=== PATIENT | female | born 1975 | race Caucasian/White ===

== ENCOUNTER 2016-12-31 13:05 | Inpatient (IN) | payer OTHER ==
[~2016-12-31] VITALS: Ht 171.4 cm; Wt 78.6 kg
[2016-12-31 14:11] VITALS: BP 126/77; PULSE 96; RESP 18
--- NOTE | 2016-12-31 16:11 | RADRPT ---
PROCEDURE: US OB biophysical profile. CLINICAL INDICATION: decreased movements, contractions TECHNIQUE: Multiple sonographic images of the pelvis were obtained. The images were reviewed on a PACS workstation. COMPARISON: No prior studies are available for comparison. FINDINGS: There is a single viable intrauterine gestation. Cardiac activity is present with 116 beats per min [place]. There is a vertex presentation. The placenta is posterior. There is no evidence of placental abruption. There is a normal amount of amniotic fluid with an JOSE CARLOS = 10.4 cm. Biophysical profile: movement 2/2 tone 2/2. breathing 2/2 JOSE CARLOS 2/2 Total 12/08 RPTAT: AA . IMPRESSION: Normal biophysical profile. . .Shelton Norton MD, MD Date Time Electronically viewed and signed by .Shelton Norton MD, MD on 12/31/2016 16:11 .S/
[2016-12-31] MEDS ORDERED: LACTATED RINGER'S 1,000 ML IV PRN (18:43)
[2016-12-31] MEDS: LACTATED RINGER'S 1,000 ML IV SCH (18:55)
[2016-12-31 18:56] VITALS: Ht 171.4 cm; Wt 78.6 kg
[2016-12-31] MEDS ORDERED: METHYLERGONOVINE 0.2 MG INJ IM PRN (19:00)
[2016-12-31] MEDS ORDERED: BUTORPHANOL 2 MG INJ IV PRN (19:00)
[2016-12-31] MEDS ORDERED: OXYTOCIN 30 UNITS/LR 500 ML IV PRN (19:00)
[2016-12-31] MEDS ORDERED: CARBOPROST 250 MCG INJ IM PRN (19:00)
[2016-12-31] MEDS ORDERED: MISOPROSTOL 200 MCG TAB PR PRN (19:00)
[2016-12-31] MEDS ORDERED: OXYTOCIN 30 UNITS/LR 500 ML IV SCH ×3 (19:00→22:00)
[2016-12-31] MEDS ORDERED: IBUPROFEN 600 MG TAB PO PRN (19:00)
[2016-12-31] MEDS ORDERED: LIDOCAINE 1% (MPF) 30 ML INJ INJ PRN (19:00)
--- NOTE | 2016-12-31 19:27 | RADRPT ---
PROCEDURE: US OB. CLINICAL INDICATION: Ruptured membranes. TECHNIQUE: Multiple sonographic images of the uterus were obtained. The images were revi ewed on a PACS workstation. COMPARISON: No prior studies are available for comparison. FINDINGS: There is a single live intrauterine gestation. heart rate is 115 beats per minute. Measurements were made in order to determine age. The results are as follows: BPD = not seen due to low position cm. HC = not seen due to low position cm. AC = 33.31 cm. FL = 6.25 cm. Estimated weight is 2758 +/- 441 grams. LMP growth percentile is 20 %. Menstrual age by ultrasound dates is 34 weeks 6 days. The estimated date of delivery is 02/05/2017. Amniotic fluid index is 4.8 cm. Position is cephalic and placenta is posterior fundal grade III. There is no evidence for an abrupti on or placenta previa. IMPRESSION: 1. Single live intrauterine gestation of 34 weeks 6 days menstrual age by ultrasound dates. 2. The estimated date of delivery is 02/05/2017. 3. Oligohydramnios. RPTAT: QQ .Seth Sarah MD, Date Time Electronically viewed and signed by .Seth Sarah MD, on 12/31/2016 19:27 .R/
--- NOTE | 2016-12-31 19:52 | TRIAGE ---
OB Triage Datetime Report Generated by CPN: 12/31/2016 19:52 Datetime: 12/31/2016 19:49 Assessment Type: Admission Assessment Vaginal Bleeding: None Maternal Assessment Level of Consciousness: Fully Conscious DTR's/Clonus: DTRs 2+; No Clonus Headache: Denies Blurred Vision: No Respiratory Effort: Unlabored; Regular Rhythm; Equal Expansion Breath Sounds, Left: Clear and Equal Breath Sounds, Right: Clear and Equal Nausea/Vomiting: Denies RUQ Epigastric Pain: Denies Lower Extremities Edema: None Degree: None Upper Extremities Edema: None Degree: None Facial Edema: None Fall Risk Assessment History of Falling: (0) No Secondary Diagnosis: (0) No Ambulatory Aid: (0) Bedrest/Nurse Assist IV Therapy: (20) Yes Gait: (0) Normal/Bedrest/Immobile Mental Status: (0) Oriented to Own Ability Labor Evaluation Frequency: 2-3 Duration (sec)2399: 50-100 Quality: Moderate Pattern: Normal: <= 5 Contractions in 10 Minutes Resting Tone Bowman: Relaxed Pain Assessment Pain Scale: 8 Pain Presence: Intermittent Pain Type: Contraction Pain Location: Abdomen Pain Goal: 4 Membrane Status: Ruptured Membranes Ruptured Date/Time: 12/31/2016 02:00 Membranes Rupture Method: Spontaneous Amniotic Fluid Color: Clear Amniotic Fluid Amount: Moderate Amniotic Fluid Odor: None Datetime: 12/31/2016 19:23 Vaginal Exam Dilatation (cms): 5.5 Effacement (%): 80 Station: -2 Exam By: PHOEBE RN Datetime: 12/31/2016 19:10 Membrane Status: Ruptured Datetime: 12/31/2016 19:03 Membrane Status: Intact Datetime: 12/31/2016 18:59 Labor Evaluation Frequency: 2-3 Monitor Mode: Palpation Duration (sec)2399: 50-60 Quality: Mild Pattern: Normal: <= 5 Contractions in 10 Minutes Resting Tone Bowman: Relaxed Heart Rate FHR Baseline Rate: 125 Monitor Mode: External US FHR Baseline Changes: No Baseline Change Variability: Moderate 6-25 bpm Accelerations: 15X15 Decelerations: Variable Category: Category II Datetime: 12/31/2016 18:33 Assessment Type: Admission Assessment Time of Arrival: 12/31/2016 18:33 EGA: 37.2 Arrived From: TRIAGE Maternal Assessment Level of Consciousness: Fully Conscious Maternal Assessment Level of Consciousness: Fully Conscious DTR's/Clonus: DTRs 2+; No Clonus DTR's/Clonus: DTRs 2+; No Clonus Headache: Denies Headache: Denies Blurred Vision: No Respiratory Effort: Unlabored; Regular Rhythm; Equal Expansion Breath Sounds, Left: Clear and Equal Breath Sounds, Left: Clear and Equal Breath Sounds, Right: Clear and Equal Breath Sounds, Right: Clear and Equal Nausea/Vomiting: Denies RUQ Epigastric Pain: Denies RUQ Epigastric Pain: Denies Lower Extremities Edema: None Degree: None Upper Extremities Edema: None Facial Edema: None Facial Edema: None Fall Risk Assessment History of Falling: (0) No Secondary Diagnosis: (0) No Ambulatory Aid: (0) Bedrest/Nurse Assist IV Therapy: (0) No Gait: (0) Normal/Bedrest/Immobile Mental Status: (0) Oriented to Own Ability Fall Score: 0 Fall Risk Score Definition: No Risk: No action required Datetime: 12/31/2016 17:08 Vaginal Exam Dilatation (cms): 4.0 Effacement (%): 60 Station: -2 Exam By: LAKESHIA WATERMAN Vaginal Bleeding: None Cervix, Consistency: Soft Cervix, Position: Posterior Datetime: 12/31/2016 14:44 Vaginal Exam Dilatation (cms): 2.5 Effacement (%): 60 Station: -2 Exam By: LAKESHIA WATERMAN Vaginal Bleeding: None Cervix, Consistency: Soft Cervix, Position: Posterior Presentation 'A': Cephalic Datetime: 12/31/2016 13:36 Stage of : OB Triage Maternal Assessment Level of Consciousness: Fully Conscious DTR's/Clonus: DTRs 2+; No Clonus Headache: Denies Breath Sounds, Left: Clear and Equal Breath Sounds, Right: Clear and Equal Nausea/Vomiting: Denies RUQ Epigastric Pain: Denies Facial Edema: None Labor Evaluation Frequency: X1 Monitor Mode: External Duration (sec)2399: 80 Pattern: Normal: <= 5 Contractions in 10 Minutes Resting Tone Bowman: Relaxed Heart Rate FHR Baseline Rate: 120 Monitor Mode: External US FHR Baseline Changes: No Baseline Change Variability: Moderate 6-25 bpm Accelerations: 15X15 Decelerations: None Category: Category I Pain Assessment Pain Scale: 4 Pain Presence: Intermittent Pain Type: Cramping Pain Location: Abdomen Pain Goal: 0 Pain Relief Measures: Comfort Measures Datetime: 12/31/2016 13:09 EGA: 37.1 Datetime: 12/31/2016 13:04 Time of Arrival: 12/30/2016 12:49 Arrived By: Ambulatory Arrived From: Home Movement: Present Contractions: Irregular Rupture of Membranes: Unsure Vaginal Bleeding: None Vaginal Discharge: Denies Recent Sexual Intercouse: Denies Abdominal Trauma: Not Applicable Patient Complaints: None Time Provider Notified: 12/31/2016 13:35
[2016-12-31 19:56] LABS: BASOPHILS % 0.2 % (0.0-2.0); EOSINOPHILS % 0.4 % (0.0-7.0); HEMATOCRIT 35.4 % (37.0-47.0); HEMOGLOBIN 11.9 g/dl (12.0-16.0); LYMPHOCYTES % 19.1 % (15.0-51.0); MEAN CORPUSCULAR HEMOGLOBIN 30.9 pg (29.0-33.0); MEAN CORPUSCULAR HGB CONC 33.6 g/dl (32.0-37.0); MEAN CORPUSCULAR VOLUME 91.9 fl (82.0-101.0); MEAN PLATELET VOLUME 10.9 fl (7.4-10.4); MONOCYTE # 0.8 10^3/ul (0.3-0.9); MONOCYTES % 7.6 % (0.0-11.0); NEUTROPHILS % 72.1 % (39.0-77.0); PLATELET COUNT 203 10^3/UL (140-415); RED BLOOD COUNT 3.85 10^6/ul (4.20-5.40); RED CELL DISTRIBUTION WIDTH 14.4 % (11.5-14.5); WHITE BLOOD COUNT 10.3 10^3/ul (4.8-10.8)
[2016-12-31 20:23] LABS: INR 0.87; PROTIME 11.8 Sec (12.2-14.2); PT RATIO 0.9
[2016-12-31 20:42] LABS: PARTIAL THROMBOPLASTIN TIME 26.5 Sec (25.0-35.0)
[2016-12-31] MEDS ORDERED: FENTAnyl 2MCG/ML-ROPIV 0.2% 100 ML ONE (20:54)
[2016-12-31] MEDS ORDERED: AMPICILLIN 2 GM/NS (PMX) 100 ML IV ONE (22:00)
[2016-12-31] MEDS ORDERED: AMPICILLIN 2 GM/NS (PMX) 100 ML ONE (22:08)
--- NOTE | 2016-12-31 23:12 | PREOPHP ---
DATE OF ADMISSION: 12/31/2016 HISTORY OF PRESENT ILLNESS: Ms. Christie Li is a 41-year- old, 2, para 1, EDC 01/19/2017, intra at 37 weeks and 2 days, presented to triage complaining of leaking fluid since 2:00 this morning, with positive contractions. She is currently 5 cm dilated, 80 percent effaced, -2 station. She reports positive movement and currently has an epidural for anesthesia. [facility] care took place [facility]. She had a big gap between her care between 27 weeks and 35 weeks gestational age. She had a positive T21 on her maternal serum alpha-fetoprotein; however her NIPT test was normal. PAST MEDICAL HISTORY: None. MEDICATIONS: vitamins. PAST SURGICAL HISTORY: None. OBSTETRICAL HISTORY: X1 vaginal delivery. GYNECOLOGIC HISTORY: Twelve, regular, 34 days. Denies any sexually transmitted disease. Sexually active with 1 partner. SOCIAL HISTORY: Denies any smoking, drugs, or alcohol. FAMILY HISTORY: None. REVIEW OF SYSTEMS: All within normal, except History of Present Illness. PHYSICAL EXAMINATION: HEENT: Within normal limits. CARDIAC: S1, S2. Regular rhythm. ABDOMEN: Gravid, nontender. Negative CVA bilaterally. EXTREMITIES: No leg edema or calf tenderness. VAGINAL EXAMINATION: About 5 cm dilated, 80 percent effaced, -2 station, with spontaneous rupture of membranes. ASSESSMENT: A 41-year-old, 2, para 1, intra at 37 weeks and 2 days gestational age, advanced maternal age, in labor/prolonged rupture of membranes. PLAN: Expected vaginal delivery. Pitocin as needed. IV antibiotics for a prolonged rupture of membranes. Dictated By: Shashi Lo MD /[email or web address]/jorge /Document#: [id number]
[2016-12-31 23:53] LABS: BARBITURATES Negative (NEGATIVE); BENZODIAZEPINES Negative (NEGATIVE); CANNABINOIDS Negative (NEGATIVE); COCAINE Negative (NEGATIVE); OPIATES Negative (NEGATIVE)
[2017-01-01] MEDS ORDERED: FENTAnyl 2MCG/ML-ROPIV 0.2% 100 ML BAG EPI SCH (00:30)
[2017-01-01] MEDS ORDERED: ONDANSETRON 4 MG INJ IV PRN ×2 (00:30→03:00)
[2017-01-01] MEDS ORDERED: NALBUPHINE HCL (10 MG/1 ML) INJ IV PRN (00:30)
[2017-01-01] MEDS ORDERED: TRIMETHOBENZAMIDE 100 MG/ML VIAL IM PRN (00:30)
[2017-01-01] MEDS ORDERED: NALOXONE (0.4 MG/ML) INJ IV PRN (00:30)
[2017-01-01] MEDS ORDERED: DIPHENHYDRAMINE 50 MG INJ IV PRN (00:30)
[2017-01-01] MEDS: LACTATED RINGER'S 1,000 ML IV SCH (01:55)
[2017-01-01] MEDS ORDERED: AMPICILLIN 1 GM/NS (PMX) 50 ML IV SCH (02:00)
[2017-01-01] MEDS: LACTATED RINGER'S 1,000 ML IV* SCH ×3 (02:53→18:53)
--- NOTE | 2017-01-01 02:53 | LDN ---
Date/Time of Note Date/Time of Note DATE: 01/01/17 TIME: 02:51 Delivery Summary Normal spontaneous vaginal delivery a viable female 8/ 9 respectively at 1 and 5 minutes Weeks of Gestation 37 Placenta Delivered: Spontaneously Meconium: none Episiotomy: Yes Laceration repair: Right medial lateral episiotomy repaired with 2-0 and 3-0 chromic Anesthesia type: Epidural Sponge & Needle done & correct: Yes All needle counts correct: Yes Problems: Infant Delivery Information Sex Sex: female Apgars 1 Minute: 8 5 Minute: 9 Suctioning Nose & mouth suctioned at angela: No Delee suction performed: No Umbilical Cord Umbilical cord with: 3 Vessels Cord presentations: no nuchal cord Cord Blood was obtained: Yes CARMENCITA PELAYO MD Jan 01, 2017 02:53
[2017-01-01] MEDS ORDERED: SENNA/DOCUSATE NA (8.6MG/50MG) TAB PO PRN (03:00)
[2017-01-01] MEDS ORDERED: MISOPROSTOL 200 MCG TAB PR PRN (03:00)
[2017-01-01] MEDS ORDERED: METHYLERGONOVINE 0.2 MG INJ IM PRN (03:00)
[2017-01-01] MEDS ORDERED: OXYTOCIN 30 UNITS/LR 500 ML IV PRN (03:00)
[2017-01-01] MEDS ORDERED: HYDROCODONE/APAP (5/325) TAB PO PRN (03:00)
[2017-01-01] MEDS ORDERED: ONDANSETRON 4 MG TAB PO PRN (03:00)
[2017-01-01] MEDS ORDERED: CARBOPROST 250 MCG INJ IM PRN (03:00)
[2017-01-01] MEDS ORDERED: DIBUCAINE 1% 30 GM OINT PR PRN (03:00)
[2017-01-01 04:45] VITALS: BP 112/68; PULSE 59; RESP 18
[2017-01-01 05:15] VITALS: BP 105/69; PULSE 60; RESP 18
[2017-01-01] MEDS: IBUPROFEN 600 MG TAB PO SCH ×4 (05:52→23:42)
[2017-01-01] MEDS: CEFAZOLIN 2 GM/50 ML (PMX) 50 ML IV SCH ×3 (05:52→21:33)
[2017-01-01] MEDS: BENZOCAINE 20% 56 ML SPRAY TOP PRN (05:53)
[2017-01-01] MEDS: WITCH HAZEL/GLYCERIN PAD PR PRN (05:53)
[2017-01-01] MEDS: LANOLIN 7 GM TUBE TOP PRN (05:54)
[2017-01-01 08:00] VITALS: BP 114/57; PULSE 77; RESP 20
[2017-01-01] MEDS: SENNA/DOCUSATE NA (8.6MG/50MG) TAB PO SCH ×2 (08:32→21:33)
[2017-01-01] MEDS: MAGNESIUM HYDROXIDE 30ML CUP PO SCH ×2 (08:32→21:33)
[2017-01-01] MEDS: HYDROCODONE/APAP (5/325) TAB PO PRN ×2 (08:33→13:17)
[2017-01-01 16:00] VITALS: BP 120/82; RESP 18
[2017-01-01 20:40] VITALS: BP 106/58; PULSE 68; RESP 18
[2017-01-02] MEDS: LACTATED RINGER'S 1,000 ML IV* SCH ×3 (00:49→18:53)
[2017-01-02 04:00] VITALS: BP 107/70; PULSE 59; RESP 19
[2017-01-02] MEDS: IBUPROFEN 600 MG TAB PO SCH ×3 (05:36→17:58)
[2017-01-02 08:00] VITALS: BP 128/71; PULSE 58; RESP 20
[2017-01-02 08:44] LABS: BASOPHILS % 0.3 % (0.0-2.0); EOSINOPHILS # 0.1 10^3/ul (0.0-0.5); EOSINOPHILS % 0.8 % (0.0-7.0); HEMATOCRIT 31.9 % (37.0-47.0); HEMOGLOBIN 10.8 g/dl (12.0-16.0); LYMPHOCYTES # 1.7 10^3/ul (0.8-2.9); LYMPHOCYTES % 16.6 % (15.0-51.0); MEAN CORPUSCULAR HEMOGLOBIN 31.9 pg (29.0-33.0); MEAN CORPUSCULAR HGB CONC 33.9 g/dl (32.0-37.0); MEAN CORPUSCULAR VOLUME 94.1 fl (82.0-101.0); MEAN PLATELET VOLUME 10.6 fl (7.4-10.4); MONOCYTE # 0.7 10^3/ul (0.3-0.9); MONOCYTES % 6.4 % (0.0-11.0); NEUTROPHILS % 75.3 % (39.0-77.0); PLATELET COUNT 172 10^3/UL (140-415); RED BLOOD COUNT 3.39 10^6/ul (4.20-5.40); RED CELL DISTRIBUTION WIDTH 14.6 % (11.5-14.5); WHITE BLOOD COUNT 10.3 10^3/ul (4.8-10.8)
[2017-01-02] MEDS: SENNA/DOCUSATE NA (8.6MG/50MG) TAB PO SCH ×2 (09:17→21:31)
[2017-01-02] MEDS: MAGNESIUM HYDROXIDE 30ML CUP PO SCH ×2 (09:17→21:31)
[2017-01-02] MEDS: WITCH HAZEL/GLYCERIN PAD PR PRN (13:06)
[2017-01-02 16:00] VITALS: BP 111/75; PULSE 70; RESP 20
--- NOTE | 2017-01-02 18:45 | QN ---
Documentation Comment Progress note day 1 Patient seen and evaluated awake alert oriented 3 negative complaints positive ambulation tolerating diet positive flatulence positive bowel Vital signs stable afebrile Abdomen uterine fundus firm below umbilicus negative distention Extremity negative edema no calf tenderness Assessment status post vaginal delivery day 1 Stable afebrile Plan: Discharge home tomorrow and follow-up in the office in 3 weeks Iron supplement CARMENCITA PELAYO MD Jan 02, 2017 18:45
--- NOTE | 2017-01-02 18:46 | PD.PPDC ---
HEALTH INFORMATION ASSISTANT Discharge Instruction Condition Patient Condition: Fair Diet Diet: Resume Regular Diet Activity/Restrictions Activity: Normal Activity May Shower Restrictions: No Exercising No Lifting No Driving No Sexual Activity Nothing in the Vagina No [place] No Tampons, douche Wound/Drain Care Instructions Wound/Drain Care Instructions: Wash with soap and water Keep clean and dry Follow-up Follow-up with Physician: 3, Week/Weeks Return to clinic for [employer] Instructions: Fever greater than 101 Chills Worsening abdominal pain Excessive Vaginal Bleeding More than 2 pads per hour Unable to tolerate diet OB Instructions: Breast Tenderness Depression Blurried Vision Headache Surgical Instructions: Incisional Drainage Incisional Redness CARMENCITA PELAYO MD Jan 02, 2017 18:46
--- NOTE | 2017-01-02 18:47 | DS ---
Date/Time of Note Date/Time of Note DATE: 01/02/17 TIME: 18:47 Obstetrical Discharge Record Final Diagnosis Final Diagnosis: Term delivered Vaginal Delivery Obstetrical Delivery: Spontaneous, Laceration, Repaired Condition on Discharge Physical Assessment Voiding: Yes Bowel Movement: Yes Breast: Soft, non-tender, Filling Fundus: Firm Calf Tenderness: No Patient Condition: Fair CARMENCITA PELAYO MD Jan 02, 2017 18:47
[2017-01-02 20:30] VITALS: BP 129/71; PULSE 65; RESP 17
[2017-01-03] MEDS: IBUPROFEN 600 MG TAB PO SCH ×3 (00:07→11:41)
[2017-01-03] MEDS: LACTATED RINGER'S 1,000 ML IV* SCH (02:53)
[2017-01-03 04:00] VITALS: BP 115/72; PULSE 71; RESP 17
[2017-01-03 08:00] VITALS: BP 130/84; PULSE 58; RESP 16
[2017-01-03] MEDS ORDERED: DIPHTH/TET/ACEL PERTUSS (ADULT) 0.5 ML VIAL IM* ONE (09:00)
[2017-01-03] MEDS ORDERED: NA PHOSPHATE/BIPHOS 133 ML ENEMA PR PRN (09:00)
[2017-01-03] MEDS: SENNA/DOCUSATE NA (8.6MG/50MG) TAB PO SCH (10:04)
[2017-01-03] MEDS: MAGNESIUM HYDROXIDE 30ML CUP PO SCH (10:04)
[2017-01-03] MEDS: BENZOCAINE 20% 56 ML SPRAY TOP PRN (11:41)
[2017-01-03] MEDS: LANOLIN 7 GM TUBE TOP PRN (11:41)
== END 2017-01-03 12:10 | disposition home or self-care (01) | DRG 775 ==
LOC: OBT 13:05 → L-D 13:08 → OBT 17:35 → L-D 17:35 → PP1 01-01 04:48
PROVIDERS: ADMIT Obstetrics & Gynecology; ATTEND Obstetrics & Gynecology
PROC: 10E0XZZ Delivery of Products of Conception, External Approach (ICD-10-PCS; principal; 2017-01-01)
PROC: 0UQMXZZ Repair Vulva, External Approach (ICD-10-PCS; 2017-01-01)
DX: O42.02 Full-term premature rupture of membranes, onset of labor within 24 hours of rupture (principal); O09.523 Supervision of elderly multigravida, third trimester; O70.9 Perineal laceration during delivery, unspecified; Z3A.37 37 weeks gestation of pregnancy; Z37.0 Single live birth
CPT/HCPCS: 62319; 76815; 76818; 80307; 84112; 85025; 85610; 85730; 86592; 86900; 86901; 87340; 90715; G0463; J0290; J0690; J2405; J2590; J3010; J7120